=== PATIENT | female | born 1955 | race Caucasian/White ===

== ENCOUNTER → 2016-10-29 | Outpatient (CLI) | payer OTHER ==
[~2016-10-29] MED LIST: GASTROGRAFIN SOLUTION 30ML (Q9963) As Ordered ONE; ISOVUE-370 76% 100ML VIAL (Q9967) As Ordered ONE
--- NOTE | 2016-10-30 00:41 | REP ---
CT of the abdomen pelvis with IV contrast but with bowel contrast: Comparisons 01/01/2010. There are 2 years along the anterior abdominal wall compatible with anterior abdominal wall mesh. There is a small fat-containing umbilical hernia 12 measuring 12 mm in diameter. There is no bowel within the hernia. There is no other anterior abdominal wall hernia. The visualized lower lung campbell are unremarkable. The unenhanced hepatic parenchyma, gallbladder, pancreas and spleen are normal size and unremarkable. The adrenals, kidneys and abdominal aorta are unremarkable. There is no hydronephrosis. There is no bowel distension or obstruction. Pelvis: There is no ascites or adenopathy. The bladder is unremarkable. The uterus is unremarkable. There is a left adnexal foot 2.3 cm cyst. Impression: 12 mm fat containing umbilical hernia. 2.3 cm left adnexal cyst. Anterior abdominal wall mesh. Otherwise, negative CT of the abdomen and pelvis. Signed by Kishore Flores MD 10/29/2016 05:50 P
== END ==
LOC: M RAD 15:36
PROVIDERS: ATTEND Surgery
DX: R10.9 Unspecified abdominal pain (principal)